=== PATIENT | female | born 1995 | race Caucasian/White ===

== ENCOUNTER 2020-04-26 20:41 | Emergency (ER) | payer OTHER ==
--- NOTE | 2020-04-26 21:03 | ER Document Report ---
ED Medical Screen (RME) - General Chief Complaint: Chest Pain Stated Complaint: CHEST/HEART PAIN Time Seen by Provider: 04/26/20 20:57 Mode of Arrival: Ambulatory Information source: Patient Notes: HPI; 25-year-old female presents the emergency room complaining of intermittent chest pain for the past 10 days that gets worse when she lays flat. Worse today and more constant increases with movement. Denies any trauma or injury. Denies any shortness of breath, denies any difficulty breathing. PE: Alert and oriented x3. Mild distress noted. Lungs: Clear to auscultation without rales, rhonchi, wheezes. Heart: Tachycardic without murmurs, rubs, gallops. I have greeted and performed a rapid initial assessment of this patient. A comprehensive ED assessment and evaluation of the patient, analysis of test results and completion of the medical decision making process will be conducted by additional ED providers. I have specifically instructed the patient or family members with the patient to immediately return to any nursing staff should anything change in the patient's condition or with their chief complaint. TRAVEL OUTSIDE OF THE [place] IN LAST 30 DAYS: No - Related Data Allergies/Adverse Reactions: lamotrigine Allergy (Verified 04/26/20 20:59) Home Medications: ZOLOFT AND CONTROL Physical Exam - Vital signs Vitals: Temp 98.9 F 04/26/20 20:57 Course - Vital Signs Vital signs: Temp Pulse Resp BP Pulse Ox 98.9 F 04/26/20 20:57
[2020-04-26 21:57] LABS: ABSOLUTE BASOPHILS # (AUTO) 0.1 10^3/uL (0.0-0.2); ABSOLUTE EOSINOPHILS # (AUTO) 0.2 10^3/uL (0.0-0.6); ABSOLUTE LYMPHOCYTES (AUTO) 3.6 10^3/uL (0.5-4.7); ABSOLUTE MONOCYTES (AUTO) 0.6 10^3/uL (0.1-1.4); ABSOLUTE NEUT (AUTO) 5.3 10^3/uL (1.7-8.2); BASOPHILS % (AUTO) 0.5 % (0-2); EOSINOPHILS % (AUTO) 1.6 % (0-6); HEMATOCRIT 39.2 % (36.0-47.0); HEMOGLOBIN 13.6 g/dL (12.0-15.5); LYMPHOCYTES % (AUTO) 37.1 % (13-45); MEAN CORPUSCULAR HEMOGLOBIN 28.9 pg (27.0-33.4); MEAN CORPUSCULAR HGB CONC 34.6 g/dL (32.0-36.0); MEAN CORPUSCULAR VOLUME 84 fl (80-97); MONOCYTES % (AUTO) 6.4 % (3-13); PLATELET COUNT 377 10^3/uL (150-450); RED BLOOD COUNT 4.69 10^6/uL (3.72-5.28); RED CELL DISTRIBUTION WIDTH 13.5 % (11.5-14.0); SEGMENTED NEUTROPHILS % (AUTO) 54.4 % (42-78); TOTAL CELLS COUNTED % (AUTO) 100 %; WHITE BLOOD COUNT 9.7 10^3/uL (4.0-10.5)
[2020-04-26 22:09] LABS: ALBUMIN 5.1 g/dL (3.5-5.0); ALKALINE PHOSPHATASE 55 U/L (38-126); ANION GAP 9 (5-19); ASPARTATE AMINO TRANSFERASE 19 U/L (14-36); BILIRUBIN,TOTAL 0.6 mg/dL (0.2-1.3); BLOOD UREA NITROGEN 12 mg/dL (7-20); CALCIUM 9.8 mg/dL (8.4-10.2); CARBON DIOXIDE 26 mmol/L (22-30); CHLORIDE 103 mmol/L (98-107); GLUCOSE 105 mg/dL (75-110); POTASSIUM 3.8 mmol/L (3.6-5.0)
[2020-04-26 22:18] LABS: APPEARANCE,URINE SLIGHTLY-CLOUDY; BILIRUBIN,URINE NEGATIVE (NEGATIVE); COLOR,URINE YELLOW; GLUCOSE, URINE NEGATIVE (NEGATIVE); KETONES,URINE NEGATIVE (NEGATIVE); LEUKOCYTE ESTERASE,URINE SMALL (NEGATIVE); NITRITE,URINE NEGATIVE (NEGATIVE); PROTEIN,URINE NEGATIVE (NEGATIVE); URINE SPECIFIC GRAVITY 1.019; UROBILINOGEN,URINE NEGATIVE mg/dL (<2.0)
--- NOTE | 2020-04-26 22:18 | RADIOLOGY REPORT (SQ) ---
EXAM DESCRIPTION: XR CHEST 2 VIEWS COMPLETED DATE/TME: 04/26/2020 21:01 CLINICAL HISTORY: 25 years, Female, chest pain COMPARISON: None. NUMBER OF VIEWS: 2 TECHNIQUE: Frontal and lateral radiographs were obtained LIMITATIONS: None. FINDINGS: Cardiac and mediastinal contours are normal. Lungs are clear. No pleural effusion or pneumothorax. IMPRESSION: No acute disease. copyright 2010 [employer]- All Rights Reserved
[2020-04-26 22:21] LABS: URINE AMPHETAMINES SCREEN NEGATIVE; URINE BARBITURATES SCREEN NEGATIVE; URINE BENZODIAZEPINES SCREEN NEGATIVE; URINE COCAINE SCREEN NEGATIVE; URINE MARIJUANA (THC) SCREEN NEGATIVE; URINE METHADONE SCREEN NEGATIVE; URINE PHENCYCLIDINE SCREEN NEGATIVE
--- NOTE | 2020-04-26 23:51 | ER Document Report ---
ED Cardiac - General Chief Complaint: Chest Pain Stated Complaint: CHEST/HEART PAIN Time Seen by Provider: 04/26/20 20:57 Primary Care Provider: WENDI LEDESMA MD [ACTIVE STAFF] - Follow up as needed KIKE FU MD [ACTIVE PROVISIONAL STAFF] - Follow up as needed Mode of Arrival: Ambulatory Information source: Patient Notes: Patient is a 25-year-old female presenting to the emergency department chief complaint of chest pain. Patient reports chest pain has been ongoing for about the last week. She reports it is worse when she lies flat or lies on her left side. She states the pain is located just below the left breast and feels like a stabbing/cramping pain. She reports the pains are intermittent and there is associated nausea and shortness of breath. She additionally reports that she has been having palpitations for some time and also feels short of breath with any exertion. She states the shortness of breath with exertion has been going on for quite a while. She does report a history of epilepsy and mitral valve regurgitation that was diagnosed as a child and has never been followed up on. She denies any history of DVT or pulmonary embolism. She is on oral contraceptives, she denies the use of any tobacco but she does vape frequently during the day. She has not had any recent travel and has not had any recent surgeries. She does not have a local doctor or mortgage counselor. TRAVEL OUTSIDE OF THE [place] IN LAST 30 DAYS: No - Related Data Allergies/Adverse Reactions: lamotrigine Allergy (Verified 04/26/20 20:59) Home Medications: ZOLOFT AND CONTROL Past Medical History - General Information source: Patient - Social History Smoking Status: Current Every Day Smoker - Electronic/vape Frequency of alcohol use: None Drug Abuse: None Family History: Reviewed & Not Pertinent Patient has suicidal ideation: No Patient has homicidal ideation: No - Past Medical History Cardiac Medical History: Reports: Other - Mitral valve regurgitation Neurological Medical History: Reports: Hx Seizures Past Surgical History: Reports: Hx Oral Surgery - wisdom teeth - Immunizations Immunizations up to date: Yes Review of Systems - Review of Systems Constitutional: denies: Chills, Fever EENT: No symptoms reported Cardiovascular: Chest pain, Palpitations, Heart racing, Orthopnea, Dyspnea Respiratory: Hurts to breathe, Short of breath Gastrointestinal: Nausea Genitourinary: No symptoms reported Female Genitourinary: No symptoms reported Musculoskeletal: No symptoms reported Skin: No symptoms reported Hematologic/Lymphatic: No symptoms reported Neurological/Psychological: No symptoms reported Physical Exam - Vital signs Vitals: Temp Pulse BP Pulse Ox 98.9 F 89 125/89 H 98 04/26/20 20:56 04/26/20 20:56 04/26/20 20:56 04/26/20 20:56 - Notes Notes: PHYSICAL EXAMINATION: GENERAL: Well-appearing, well-nourished and in no acute distress. HEAD: Atraumatic, normocephalic. EYES: Pupils equal round and reactive to light, extraocular movements intact, conjunctiva are normal. ENT: Nares patent, oropharynx clear without exudates. Moist mucous membranes. NECK: Normal range of motion, supple without lymphadenopathy LUNGS: Breath sounds clear to auscultation bilaterally and equal. No wheezes rales or rhonchi. HEART: Regular rate without murmur. ABDOMEN: Soft, nontender, nondistended abdomen. No guarding, no rebound. No masses appreciated. Female : No CVA tenderness. Musculoskeletal: Normal range of motion, no pitting or edema. No cyanosis. NEUROLOGICAL: Cranial nerves grossly intact. Normal speech, normal gait. Nor mal sensory, motor exams PSYCH: Normal mood, normal affect. SKIN: Warm, Dry, normal turgor, no rashes or lesions noted. Course - Re-evaluation Re-evalutation: 04/26/20 23:53 Patient appears well nontoxic. Her initial vital signs were unremarkable. When I went to see the patient she is not on a online education manager. Due to her symptoms as outlined in my HPI we must rule out a pulmonary embolism. CTA was negative for any pulmonary embolism. Patient's work-up today has been unremarkable. Troponin negative. Patient has no risk factors for ACS. She will be referred to cardiology due to her history. ED return precautions dis cussed, patient verbalized understanding and agreement with plan. - Vital Signs Vital signs: Temp Pulse Resp BP Pulse Ox 98.9 F 65 15 105/82 99 04/26/20 20:57 04/27/20 03:00 04/27/20 03:00 04/27/20 03:00 04/27/20 03:00 - Laboratory Result Diagrams: 04/26/20 21:41 04/26/20 21:41 Laboratory results interpreted by me: 04/26/20 04/26/20 21:41 21:41 Albumin 5.1 H Ur Leukocyte Esterase SMALL H - Diagnostic Test Radiology reviewed: Image reviewed, Reports reviewed - EKG Interpretation by Me EKG shows normal: Sinus rhythm Rate: Normal Rhythm: NSR When compared to previous EKG there are: Previous EKG unavailable Additional EKG results interpreted by me: 04/26/20 23:[address] segment elevations or depressions to suggest ischemia. Rate 97. Discharge - Discharge Clinical Impression: Chest pain Qualifiers: Chest pain type: unspecified Qualified Code(s): R07.9 - Chest pain, unspecified Condition: Stable Disposition: HOME, SELF-CARE Additional Instructions: Your work-up today was reassuring. I have enclosed a copy of your work-up for your primary care provider and your mortgage counselor to review. Please call tomorrow to schedule an appointment with cardiology. Let them know you are seen in the emergency department and that you need an echocardiogram. Let them know that you were diagnosed with mitral valve regurgitation as a child and have not had follow-up on this for many years. If you are unable to get in with them or you have any other issues please return to the emergency department. Referrals: WENDI LEDESMA MD [ACTIVE STAFF] - Follow up as needed KIKE FU MD [ACTIVE PROVISIONAL STAFF] - Follow up as needed
--- NOTE | 2020-04-27 00:48 | RADIOLOGY REPORT (SQ) ---
CLINICAL INDICATION: chest pain/shortness of breath/eval for PE. . TECHNIQUE: CT arteriography was obtained of the chest with multiplanar MIP and/or 3-D angiographic reconstructions. This exam was performed according to our departmental dose-optimization program, which includes automated exposure control, adjustment of the mA and/or kV according to patient size and/or use of iterative reconstruction techniques. COMPARISON: None. CORRELATION: None. FINDINGS: Adequate contrast bolus. Average Hounsfield unit measurement within main pulmonary artery segment of 391. Artifact from venous opacification. There is no evidence of pulmonary embolus. Thoracic aorta is of normal caliber. The heart is of normal size. No pericardial effusion. No bulky mediastinal adenopathy. The lungs are grossly clear. No consolidation or edema. No effusion or pneumothorax. Visualized abdominal contents are unremarkable. Visualized bones are unremarkable. IMPRESSION: No evidence of pulmonary embolus. Lungs grossly clear .
[2020-04-27] MEDS ORDERED: KETOROLAC TROMETHAMINE INJ/PF 30 MG/1 ML SDV IV ONE (02:42)
[2020-04-27 02:58] VITALS: BP 105/82
--- NOTE | 2020-04-27 07:54 | EKG REPORT ---
SEVERITY:- ABNORMAL ECG - SINUS RHYTHM RIGHT ATRIAL ABNORMALITY : Confirmed by: Emilie Michelle 27-Apr-2020 07:53:52
== END 2020-04-27 03:10 | disposition home or self-care (01) ==
LOC: ER 20:41
DX: R07.9 Chest pain, unspecified (principal); R06.02 Shortness of breath; R11.0 Nausea; F17.200 Nicotine dependence, unspecified, uncomplicated; Z79.3 Long term (current) use of hormonal contraceptives
CPT/HCPCS: 93005; 99285; 96374; 36415; 84443; 84703; 85025; 80053; 81001; 84484; 80307; 71046; 71275; 93010; J1885